=== PATIENT | female | born 1955 | race American Indian/Alaskan Native ===

== ENCOUNTER 2016-09-10 12:08 | Emergency (ER) | payer MEDICAID ==
[2016-09-10 13:14] LABS: Basophils % (Auto) 0.4 % (0.0-1.8); Eosinophils % (Auto) 4.6 % (0.0-4.3); Hematocrit 33.6 % (30.3-42.9); Hemoglobin 11.2 gm/dl (10.1-14.3); Mean Corpuscular HGB Conc 33 % (30-34); Mean Corpuscular Hemoglobin 27 pg (28-32); Mean Corpuscular Volume 81 fl (79-97); Platelet Count 196 K/mm3 (140-440); Red Blood Count 4.14 M/mm3 (3.65-5.03); Red Cell Distribution Width 14.2 % (13.2-15.2); White Blood Count 5.8 K/mm3 (4.5-11.0)
[2016-09-10 13:30] LABS: Anion Gap 22 mmol/L; Blood Urea Nitrogen 16 mg/dL (7-17); Calcium 8.8 mg/dL (8.4-10.2); Carbon Dioxide 19 mmol/L (22-30); Chloride 103.2 mmol/L (98-107); Glucose 189 mg/dL (65-100); Potassium 3.8 mmol/L (3.6-5.0); Sodium 140 mmol/L (137-145)
[2016-09-10 19:21] VITALS: BP 167/82
[2016-09-10 19:32] LABS: Bilirubin,Urine NEG (Negative); Blood,Urine SM (Negative); Ketones,Urine NEG (Negative); Leukocyte Esterase,Urine MOD (Negative); Mucus,Urine FEW /HPF; Nitrite,Urine NEG (Negative); Urobilinogen,Urine < 2.0 mg/dL (<2.0)
--- NOTE | 2016-09-10 19:40 | Emergency Department Report ---
ED Lower Extremity HPI - General Chief Complaint: Extremity Problem,Nontraumatic Stated Complaint: LEFT KNEE/FOOT/LEG Time Seen by Provider: 09/10/16 18:48 Source: patient Mode of arrival: Ambulatory Limitations: No Limitations - History of Present Illness Initial Comments: Patient is a 61-year-old female with a history of HIV and hypertension who presents with atraumatic left knee and leg pain. Patient reports for the last 2 months her knee has been aching without swelling or other changes. Patient has not tried any [id number] medications for pain relief and has not seen her primary care. Otherwise no fevers, chills, headache, nausea, vomiting, diarrhea, chest pain, shortness of breath, abdominal pain, hip pain, trouble walking, travel, or sick contacts. - Related Data Previous Rx's Medication Instructions Recorded Last Taken Type Naproxen [Naprosyn] 500 mg PO BID PRN #14 tablet 09/10/16 Unknown Rx Allergies Allergy/AdvReac Type Severity Reaction Status Date / Time sulfamethoxazole Allergy Rash Verified 09/10/16 12:46 [From Bactrim] trimethoprim [From Bactrim] Allergy Rash Verified 09/10/16 12:46 ED Review of Systems ROS: Stated complaint: LEFT KNEE/FOOT/LEG Other details as noted in HPI Comment: All other systems reviewed and negative Constitutional: denies: chills, fever Eyes: denies: eye pain, eye discharge, vision change ENT: denies: ear pain, throat pain Respiratory: denies: cough, shortness of breath, wheezing Cardiovascular: denies: chest pain, palpitations Endocrine: no symptoms reported Gastrointestinal: denies: abdominal pain, nausea, diarrhea Genitourinary: denies: urgency, dysuria, discharge Musculoskeletal: denies: back pain, joint swelling, arthralgia Skin: denies: rash, lesions Neurological: denies: headache, weakness, paresthesias Psychiatric: denies: anxiety, depression Hematological/Lymphatic: denies: easy bleeding, easy bruising ED Past Medical Hx - Past Medical History Hx Hypertension: Yes Hx Diabetes: Yes Hx HIV: Yes - Surgical History Additional Surgical History: Hysterectomy - Social History Smoking Status: Never Smoker Substance Use Type: None - Medications Home Medications: Home Medications Medication Instructions Recorded Confirmed Last Taken Type Naproxen [Naprosyn] 500 mg PO BID PRN #14 tablet 09/10/16 Unknown Rx ED Physical Exam - General Limitations: No Limitations General appearance: alert, in no apparent distress - Head Head exam: Present: atraumatic, normocephalic - Eye Eye exam: Present: normal appearance - ENT ENT exam: Present: mucous membranes moist - Neck Neck exam: Present: normal inspection - Respiratory Respiratory exam: Present: normal lung sounds bilaterally. Absent: respiratory distress - Cardiovascular Cardiovascular Exam: Present: regular rate, normal rhythm. Absent: systolic murmur, diastolic murmur, rubs, gallop - GI/Abdominal GI/Abdominal exam: Present: soft, normal bowel sounds - Extremities Exam Extremities exam: Present: normal inspection, full ROM, other (No erythema). Absent: tenderness, pedal edema, joint swelling, calf tenderness - Back Exam Back exam: Present: normal inspection - Neurological Exam Neurological exam: Present: alert, oriented X3 - Psychiatric Psychiatric exam: Present: normal affect, normal mood - Skin Skin exam: Present: warm, dry, intact, normal color. Absent: rash ED Course Vital Signs 09/10/16 09/10/16 09/10/16 12:46 18:52 18:53 Temperature 98.0 F 98.3 F Pulse Rate 92 H 85 Respiratory 20 16 16 Rate Blood Pressure 158/93 Blood Pressure 176/91 [Right] O2 Sat by Pulse 100 100 100 Oximetry 09/10/16 19:12 Temperature Pulse Rate 77 Respiratory 18 Rate Blood Pressure 167/82 Blood Pressure [Right] O2 Sat by Pulse 99 Oximetry ED Lower Extremity MDM - Lab Data Result diagrams: 09/10/16 12:57 09/10/16 12:57 Critical care attestation.: If time is entered above; I have spent that time in minutes in the direct care of this critically ill patient, excluding procedure time. ED Disposition Clinical Impression: Knee pain, chronic Disposition: DISCHARGED TO HOME OR SELFCARE Is pt being admited?: No Condition: Stable Instructions: Arthralgia (ED) Prescriptions: Naproxen [Naprosyn] 500 mg PO BID PRN #14 tablet PRN Reason: Pain Referrals: PRIMARY CARE,MD [Primary Care Provider] - 3-5 Days
== END 2016-09-10 19:59 | disposition home or self-care (01) ==
LOC: ED 12:08
DX: M25.562 Pain in left knee (principal); G89.29 Other chronic pain; I10 Essential (primary) hypertension; E11.9 Type 2 diabetes mellitus without complications; Z88.1 Allergy status to other antibiotic agents; Z21 Asymptomatic human immunodeficiency virus [HIV] infection status
CPT/HCPCS: 36415; 80048; 81001; 85025; 99283